=== PATIENT | male | born 1950 | race Caucasian/White ===

== ENCOUNTER 2016-12-10 13:16 | Inpatient (IN) | payer OTHER ==
[~2016-12-10] VITALS: Ht 180.3 cm; Wt 89.2 kg
[2016-12-10 13:31] LABS: EOSINOPHIL (%) 0.4 % (0-5); EOSINOPHIL COUNT 0.1 K/uL (0-0.3); HEMATOCRIT 42.1 % (38.0-50.0); IMMATURE GRANULOCYTE (%) 0.7 % (0.0-0.7); LYMPHOCYTE COUNT 1.1 K/uL (1.0-2.8); MCH 30.8 PG (29.0-34.0); MCHC 35.4 G/DL (30.0-36.0); MCV 87.2 FL (86-99); MEAN PLAT.VOLUME 9.4 uM^3 (9.0-12.4); MONOCYTE (%) 4.4 % (3-12); MONOCYTE COUNT 0.7 K/uL (0-0.8); NEUTROPHIL (%) 87.2 % (45-76); NEUTROPHIL COUNT 13.4 K/uL (1.8-6.4); PLATELET COUNT 315 K/uL (156-360); RBC DIS.WIDTH-CV 12.8 % (11.8-14.6); RBC DIS.WIDTH-SD 39.5 % (39-53); RED BLOOD COUNT 4.83 M/uL (4.00-5.50); WHITE BLOOD COUNT 15.4 K/uL (4.1-10.2)
[2016-12-10 13:42] LABS: AMYLASE 70 IU/L (1-118); CHLORIDE 107 mEq/L (99-109); SODIUM 140 mEq/L (136-147)
[2016-12-10 13:44] LABS: GLUCOSE 105 mg/dL (70-99)
[2016-12-10 13:45] LABS: ANION GAP 12 MEQ/L (2-14)
[2016-12-10 13:47] LABS: SERUM ETHYL ALCOHOL < 10 mg/dL
[2016-12-10 13:48] LABS: GFR ESTIMATE (CALCULATED) 54 mL/min/
[2016-12-10 13:49] LABS: UREA NITROGEN (BUN) 24 mg/dL (9-23)
[2016-12-10 13:51] LABS: LIPASE 25 U/L (1.0-51.0)
[2016-12-10 13:56] LABS: TROP-I INTERPRETATION NEGATIVE; TROPONIN-I < 0.01 ng/mL (0.0-0.30)
[2016-12-10 15:11] LABS: ADD MIUA? YES; BILIRUBIN NEGATIVE; BLOOD NEGATIVE; COLOR YELLOW ((YELLOW)); GLUCOSE (STRIP) NEGATIVE; KETONES 5; LEUKOCYTES NEGATIVE; NITRITE NEGATIVE; PROTEIN (STRIP) NEGATIVE; SPECIFIC GRAVITY 1.026 (1.000-1.030); UROBILINOGEN 0.2 MG/DL (0.2-1.0)
[2016-12-10 15:16] LABS: BACTERIA RARE /HPF; EPITHELIAL CELLS RARE /HPF; MUCUS TRACE /LPF; RED BLOOD CELLS 0-5 /HPF (0-5); UCUL ADDED? NO; WHITE BLOOD CELLS 0-5 /HPF (0-5)
[2016-12-10 15:23] LABS: AMPHETAMINE NEGATIVE (500 ng/mL); BARBITURATES NEGATIVE (200 ng/mL); BENZODIAZEPINES NEGATIVE (150 ng/mL); COCAINE NEGATIVE (150 ng/mL); INTERNAL CONTROLS VALID? YES; METHADONE NEGATIVE (200 ng/mL); METHAMPHETAMINE NEGATIVE (500 ng/mL); OPIATES (MORPHINE) NEGATIVE (100 ng/mL); OXYCODONE NEGATIVE (100 ng/mL); PHENCYCLIDINE NEGATIVE (25 ng/mL); PROPOXYPHENE NEGATIVE (300 ng/mL); THC CANNABINOIDS NEGATIVE (50 ng/mL); TRICYCLIC ANTIDEPRESSANTS NEGATIVE (300 ng/mL)
[2016-12-10] MEDS ORDERED: RAPAFLO8 MG PO (17:06)
[2016-12-10] MEDS ORDERED: MSM-GLUCOSAMIN1 EACH PO (17:46)
[2016-12-10] MEDS ORDERED: MEN'S BIOMULTI1 EACH PO (17:47)
[2016-12-10] MEDS ORDERED: GARLIC400 M1 PO (17:47)
[2016-12-10] MEDS ORDERED: FISH OIL 1,0001 EAC7 PO (17:47)
[2016-12-11 00:46] LABS: EOSINOPHIL (%) 1.1 % (0-5); EOSINOPHIL COUNT 0.1 K/uL (0-0.3); IMMATURE GRANULOCYTE (%) 0.3 % (0.0-0.7); IMMATURE GRANULOCYTE COUNT 0.3 K/uL; LYMPHOCYTE COUNT 1.1 K/uL (1.0-2.8); MCH 30.5 PG (29.0-34.0); MCHC 34.6 G/DL (30.0-36.0); MCV 88.2 FL (86-99); MEAN PLAT.VOLUME 9.1 uM^3 (9.0-12.4); MONOCYTE COUNT 0.6 K/uL (0-0.8); NEUTROPHIL (%) 78.9 % (45-76); NEUTROPHIL COUNT 7.2 K/uL (1.8-6.4); PLATELET COUNT 263 K/uL (156-360); RBC DIS.WIDTH-CV 12.7 % (11.8-14.6); RED BLOOD COUNT 4.42 M/uL (4.00-5.50); WHITE BLOOD COUNT 9.1 K/uL (4.1-10.2)
[2016-12-11 05:58] LABS: EOSINOPHIL (%) 1.2 % (0-5); EOSINOPHIL COUNT 0.1 K/uL (0-0.3); HEMATOCRIT 39.7 % (38.0-50.0); IMMATURE GRANULOCYTE (%) 0.3 % (0.0-0.7); IMMATURE GRANULOCYTE COUNT 0.2 K/uL; LYMPHOCYTE COUNT 1.1 K/uL (1.0-2.8); MCH 30.4 PG (29.0-34.0); MCHC 34.3 G/DL (30.0-36.0); MCV 88.8 FL (86-99); MEAN PLAT.VOLUME 9.5 uM^3 (9.0-12.4); MONOCYTE (%) 7.1 % (3-12); MONOCYTE COUNT 0.5 K/uL (0-0.8); NEUTROPHIL (%) 76.7 % (45-76); NEUTROPHIL COUNT 5.7 K/uL (1.8-6.4); PLATELET COUNT 264 K/uL (156-360); RBC DIS.WIDTH-CV 12.8 % (11.8-14.6); RBC DIS.WIDTH-SD 40.8 % (39-53); RED BLOOD COUNT 4.47 M/uL (4.00-5.50); WHITE BLOOD COUNT 7.4 K/uL (4.1-10.2)
[2016-12-11 06:11] LABS: CHLORIDE 107 mEq/L (99-109); POTASSIUM 4.2 mEq/L (3.7-5.4); SODIUM 141 mEq/L (136-147)
[2016-12-11 06:13] LABS: GLUCOSE 112 mg/dL (70-99)
[2016-12-11 06:14] LABS: ANION GAP 9 MEQ/L (2-14)
[2016-12-11 06:15] LABS: TOTAL BILIRUBIN 0.8 mg/dL (0.0-1.0)
[2016-12-11 06:16] LABS: ALKALINE PHOSPHATASE 42 IU/L (3-129)
[2016-12-11 06:17] LABS: GFR ESTIMATE (CALCULATED) 54 mL/min/
[2016-12-11 06:18] LABS: UREA NITROGEN (BUN) 20 mg/dL (9-23)
[2016-12-11 16:31] VITALS: BP 135/83
[2016-12-11 20:17] VITALS: BP 142/79
[2016-12-12] VITALS (12 sets, daily range): BP systolic 101–147; BP diastolic 70–95
[2016-12-12 03:55] LABS: HEMATOCRIT 42.9 % (38.0-50.0); MCH 29.8 PG (29.0-34.0); MCV 87.6 FL (86-99); MEAN PLAT.VOLUME 9.7 uM^3 (9.0-12.4); PLATELET COUNT 255 K/uL (156-360); RBC DIS.WIDTH-CV 12.8 % (11.8-14.6); WHITE BLOOD COUNT 8.4 K/uL (4.1-10.2)
[2016-12-12 04:08] LABS: CHLORIDE 107 mEq/L (99-109); POTASSIUM 3.9 mEq/L (3.7-5.4); SODIUM 140 mEq/L (136-147)
[2016-12-12 04:10] LABS: GLUCOSE 122 mg/dL (70-99)
[2016-12-12 04:11] LABS: ANION GAP 14 MEQ/L (2-14)
[2016-12-12 04:13] LABS: GFR ESTIMATE (CALCULATED) > 59 mL/min/
[2016-12-12 04:14] LABS: UREA NITROGEN (BUN) 17 mg/dL (9-23)
[2016-12-12 05:52] LABS: ANION GAP 11 MEQ/L (2-14); CHLORIDE 104 MEQ/L (99-109); GFR ESTIMATE (CALCULATED) 59 mL/min/; GLUCOSE 121 mg/dL (70-99); POTASSIUM 3.9 MEQ/L (3.7-5.4); SAMPLE HEMOLYSIS CHECK 0; SAMPLE ICTERIC CHECK 0; SAMPLE LIPEMIA CHECK 0; SODIUM 141 MEQ/L (136-147); UREA NITROGEN (BUN) 17 mg/dL (9-23)
[2016-12-13 00:01] VITALS: BP 120/70
[2016-12-13 09:09] VITALS: BP 130/80
[2016-12-13] MEDS ORDERED: ENDOCET 5-3251 EACH PO (14:45)
[2016-12-13] MEDS ORDERED: BISACODYL5 MG PO (14:45)
[2016-12-13] MEDS ORDERED: CARDIZEM90 MG PO (14:45)
[2016-12-13] MEDS ORDERED: MYLICON,MYLANTA80 MG PO (14:45)
[2016-12-13] MEDS ORDERED: CHLORZOXAZONE500 MG PO (14:45)
[2016-12-13 17:02] VITALS: BP 133/88
== END 2016-12-13 19:50 | disposition home or self-care (01) | DRG 694 ==
LOC: TRA 13:16 → EDOF 17:33 → 3EAST 17:33 → EDOF 17:35 → 3EAST 12-11 16:07
PROVIDERS: Emergency Medicine; Internal Medicine; Surgery
DX: N13.30 Unspecified hydronephrosis (principal); S32.029A Unspecified fracture of second lumbar vertebra, initial encounter for closed fracture; I48.92 Unspecified atrial flutter; R33.9 Retention of urine, unspecified; K44.9 Diaphragmatic hernia without obstruction or gangrene; R53.1 Weakness; K58.9 Irritable bowel syndrome, unspecified; N40.1 Benign prostatic hyperplasia with lower urinary tract symptoms; W11.XXXA Fall on and from ladder, initial encounter; Y93.9 Activity, unspecified; Y92.9 Unspecified place or not applicable; Y99.9 Unspecified external cause status; R94.31 Abnormal electrocardiogram [ECG] [EKG]; Z87.898 Personal history of other specified conditions
CPT/HCPCS: 70450; 70498; 71260; 72125; 72126; 72129; 72132; 74020; 74177; 80048; 80048 91; 80053; 81003; 82150; 83690; 84443; 84484; 85025; 85025 91; 85027; 86850; 86900; 86901; 93005; 97530 GP; 99281; 99285; G0378; G0480; G8987 GO CM; G8988 CI; J1170; J1650; J1885; J2405; J3010; J7030; J7050

== ENCOUNTER 2016-12-15 09:41 | Emergency (ER) | payer OTHER ==
[~2016-12-15] VITALS: Ht 180.3 cm; Wt 86.3 kg
[~2016-12-15 09:41] MED LIST: BISACODYL5 MG PO; CARDIZEM90 MG PO; CHLORZOXAZONE500 MG PO; ENDOCET 5-3251 EACH PO; FISH OIL 1,0001 EAC7 PO; GARLIC400 M1 PO; MEN'S BIOMULTI1 EACH PO; MSM-GLUCOSAMIN1 EACH PO; MYLICON,MYLANTA80 MG PO; RAPAFLO8 MG PO
[2016-12-15 11:00] LABS: ADD MIUA? YES; BILIRUBIN NEGATIVE; BLOOD LARGE; COLOR YELLOW ((YELLOW)); GLUCOSE (STRIP) NEGATIVE; KETONES NEGATIVE; LEUKOCYTES NEGATIVE; NITRITE NEGATIVE; PROTEIN (STRIP) 100; SPECIFIC GRAVITY 1.018 (1.000-1.030); UROBILINOGEN 0.2 MG/DL (0.2-1.0)
[2016-12-15 11:28] LABS: BACTERIA RARE /HPF; CALCIUM OXALATE CRYSTALS 4+ /HPF; EPITHELIAL CELLS NONE SEEN /HPF; MUCUS TRACE /LPF; RED BLOOD CELLS TNTC /HPF (0-5)
[2016-12-15] MEDS ORDERED: LIDOCAINE20 MG/1 M5 MM (11:45)
[2016-12-15 12:06] VITALS: BP 120/87
== END 2016-12-15 12:14 | disposition home or self-care (01) ==
LOC: EME 09:41 → EXP 09:41
PROVIDERS: Physician Assistant
DX: R31.9 Hematuria, unspecified (principal); Z46.6 Encounter for fitting and adjustment of urinary device
CPT/HCPCS: 81003; 99281; 99284